=== PATIENT | male | born 1980 | race African-American/Black ===

== ENCOUNTER 2017-03-01 01:30 | Emergency (ER) | payer SELFPAY ==
[~2017-03-01] VITALS: Ht 170.2 cm; Wt 72.6 kg
[2017-03-01] MEDS ORDERED: ALBUTEROL/ATROVENT INH (01:35)
[2017-03-01] MEDS ORDERED: PREDNISONE20 MG PO (03:03)
[2017-03-01] MEDS ORDERED: VENTOLIN HFA18 GM INH (03:04)
[2017-03-01] MEDS ORDERED: ALBUTEROL2.5 MG/3 M INH (03:19)
== END 2017-03-01 05:03 | disposition home or self-care (01) ==
LOC: ED 01:30
DX: J45.901 Unspecified asthma with (acute) exacerbation (principal); F17.200 Nicotine dependence, unspecified, uncomplicated; Z90.49 Acquired absence of other specified parts of digestive tract
CPT/HCPCS: 94640; 96361; 96374; 96375; 99284; J2920; J3475; J7030